=== PATIENT | female | born 1965 | race Caucasian/White ===

== ENCOUNTER → 2019-04-01 | Outpatient (CLI) | payer OTHER, SELFPAY ==
[~2019-04-01] MED LIST: E-Z-GAS II EFFERVESCENT PACKET (SODIUM BICARB./CITRIC ACID/SIMETHICONE) As Ordered ONE; E-Z-HD 98% w/w 340GM SUSP BTL As Ordered ONE; E-Z-PAQUE 96% w/w SUSP 176GM BTL As Ordered ONE
--- NOTE | 2019-04-01 17:27 | REP ---
Esophagram The procedure was performed under the direct supervision of Dr. Peraza. The images were reviewed with Dr. Peraza. A single view PA chest x-ray is submitted as a shoe worker film. The superior mediastinal structures are midline. The heart size is within normal limits. The lungs are clear. Liquid barium and gas producing granules were given in the erect position as well as liquid barium in the prone oblique positions in order to perform a double contrast esophagram examination. The oral and pharyngeal stages of deglutition are unremarkable. Esophageal transport is prompt and efficient and there is no esophagitis, stricture, mucosal ring or hiatal hernia. Gastroesophageal reflux is not demonstrated on this examination. Note is made of degenerative disc disease in the cervical spine. Impression: Essentially unremarkable double contrast esophagram examination. 0.5 minutes of fluoro time was utilized for this procedure. Electronically Signed by BELA Espinoza 04/01/2019 03:24 P Electronically Signed by Fermín Peraza MD 04/01/2019 05:18 P
== END ==
LOC: M RAD 07:47
PROVIDERS: ATTEND Surgery
DX: R13.10 Dysphagia, unspecified (principal); M50.30 Other cervical disc degeneration, unspecified cervical region

== ENCOUNTER → 2019-04-30 | Outpatient (CLI) | payer OTHER ==
--- NOTE | 2019-04-30 10:40 | REP ---
NUCLEAR GASTRIC EMPTYING SCAN: Following the oral administration of 1.1 mCi of technetium-99m sulfur colloid in two scrambled eggs and 6 ounces of water multiple images of the upper abdomen are performed in the anterior and posterior projections. Gastric activity is measured. At the end of 90 minutes 47% of the ingested activity has emptied from the stomach. T1/2 is calculated to be 98 minutes. A normal T1/2 is 90 minutes or less. IMPRESSION: Slightly elevated T1/2 at 98 minutes, normal is 90 minutes or less. Gastric emptying appears to be at the upper limits of normal to slightly delayed. Electronically Signed by Chai Herndon MD 04/30/2019 03:50 P
== END ==
LOC: M RAD 07:36
PROVIDERS: ATTEND Internal Medicine Gastroenterology
DX: K21.9 Gastro-esophageal reflux disease without esophagitis (principal); K31.84 Gastroparesis
CPT/HCPCS: 78264; A9541

== ENCOUNTER 2019-07-16 08:29 | Day surgery (SDC) | payer OTHER ==
[~2019-07-16] VITALS: Ht 154.9 cm; Wt 61.7 kg
[~2019-07-16 08:29] MED LIST changes: -E-Z-GAS II EFFERVESCENT PACKET (SODIUM BICARB./CITRIC ACID/SIMETHICONE) As Ordered ONE; -E-Z-HD 98% w/w 340GM SUSP BTL As Ordered ONE; -E-Z-PAQUE 96% w/w SUSP 176GM BTL As Ordered ONE; +FAMO40TA3 PO; +GABA600T4 PO; +NS 1,000 ML IV ONE; +OMEP-221 PO; +PHEN37.52 PO
[2019-07-16] MEDS ORDERED: LIDOCAINE 2% INJ 100 MG/5 ML SDV (FOR ANES.) As Ordered ONE (09:39)
[2019-07-16] MEDS ORDERED: fentaNYL 100 MCG/2 ML INJECTION (J3010) As Ordered ONE (09:39)
[2019-07-16] MEDS ORDERED: propofoL 500 MG/50 ML VIAL As Ordered ONE (09:39)
--- NOTE | 2019-07-16 09:48 | ROOR ---
Patient Name: Kelsey Miles Procedure Date: 07/16/2019 9:28 AM Date of : 1965 Age: 54 Room: [facility] Gender: Female Note Status: Finalized Procedure: Upper GI endoscopy Indications: Heartburn, Esophageal reflux symptoms that recur despite appropriate therapy. Gastroparesis Providers: Serg LUCIO MD Referring MD: REZA AMIN DO Requesting Provider: Medicines: Monitored Anesthesia Care Complications: No immediate complications. Procedure: Pre-Anesthesia Assessment: - The heart rate, respiratory rate, oxygen saturations, blood pressure, adequacy of pulmonary ventilation, and response to care were monitored throughout the procedure. The Endoscope was introduced through the mouth, and advanced to the second part of duodenum. The upper GI endoscopy was accomplished without difficulty. The patient tolerated the procedure well. Findings: The examined esophagus was normal. This was biopsied with a cold forceps for evaluation of eosinophilic esophagitis. The Z-line was regular and was found 36 cm from the incisors. Multiple 5 mm sessile fundic gland polyps were found in the gastric fundus and in the gastric body. This was biopsied with a cold forceps for histology. The exam of the stomach was otherwise normal. The examined duodenum was normal. Impression: - Normal esophagus. Biopsied mid/distal/proximal esophagus. - Z-line regular, 36 cm from the incisors. - Multiple fundic gland polyps. Biopsied. - Otherwise normal stomach. Biopsied. - Normal examined duodenum. Recommendation: - Gastroparesis diet: - Eat smaller, more frequent meals throughout the day. - Low fat diet. - Liquid/soft foods are tolerated better than solid foods. - Low fiber/well cooked vegetables are tolerated better than high fiber/fibrous foods/raw vegetables. - Avoid medications that inhibit gastric/intestinal motility such as narcotic medications. - Avoid late night eating. - Observe patient's clinical course. Serg Lucio MD Serg LUCIO MD 07/16/2019 9:48:38 AM Electronically signed by Serg LUCIO MD Number of Addenda: 0 Note Initiated On: 07/16/2019 9:28 AM Estimated Blood Loss: Estimated blood loss: none.
[2019-07-16 10:14] VITALS: BP 146/95
== END 2019-07-16 10:14 | disposition home or self-care (01) ==
LOC: M OPP 08:29
PROVIDERS: ATTEND Internal Medicine Gastroenterology
DX: K31.7 Polyp of stomach and duodenum (principal); R12 Heartburn; K21.9 Gastro-esophageal reflux disease without esophagitis; E11.9 Type 2 diabetes mellitus without complications; Z79.899 Other long term (current) drug therapy; Z88.5 Allergy status to narcotic agent; Z88.8 Allergy status to other drugs, medicaments and biological substances; Z80.0 Family history of malignant neoplasm of digestive organs
CPT/HCPCS: 43239; 88305; J3010

== ENCOUNTER 2024-03-05 07:53 | Day surgery (SDC) | payer OTHER ==
[~2024-03-05] VITALS: Ht 157.5 cm; Wt 62.9 kg
[~2024-03-05 07:53] MED LIST changes: +ACETAMINOPHEN 1000MG 100ML IV BAG As Ordered ONE; +CELE0.09 PO; +GABA-1490 PO; -GABA600T4 PO; +GNPTAB36 PO; +LIDOCAINE 2% 100MG/5ML SDV (FOR ANES.) As Ordered ONE; +METO1TAB7 PO; +MIDAZOLAM INJ 2MG/2ML VIAL As Ordered ONE; +NEXI40CA PO; -NS 1,000 ML IV ONE; -OMEP-221 PO; +OMEP40CA5 PO; +ONDANSETRON 4MG 2ML VIAL As Ordered ONE; -PHEN37.52 PO; +PHEN37.58 PO; +ROSU5TAB40 PO; +TRUL0.5I SC; +dexmedeTOMIDine (4MCG/ML)200MCG/50ML BTL (PRECEDEX) As Ordered ONE; +fentaNYL 100 MCG/2 ML INJECTION As Ordered ONE; +propofoL 200 MG/20 ML VIAL As Ordered ONE
[2024-03-05] MEDS ORDERED: LR 1,000 ML IV SCH (09:10)
[2024-03-05] MEDS: LIDOCAINE 2% MDV 20ML VIAL As Ordered ONE (09:49)
[2024-03-05] MEDS: ceFAZolin SOD 2 GM in IV 1 EA IV ONE (09:50)
[2024-03-05] MEDS: GENTAMICIN SULF 80MG/2ML VIAL As Ordered ONE (10:32)
[2024-03-05 12:00] VITALS: BP 124/84; TEMP 97.3; O2SAT 97
== END 2024-03-05 13:36 | disposition home or self-care (01) ==
LOC: M SDC 07:53
PROVIDERS: ATTEND Podiatrist
DX: G57.62 Lesion of plantar nerve, left lower limb (principal); E11.9 Type 2 diabetes mellitus without complications; I10 Essential (primary) hypertension; E78.00 Pure hypercholesterolemia, unspecified; K58.9 Irritable bowel syndrome, unspecified; K21.9 Gastro-esophageal reflux disease without esophagitis; Z79.899 Other long term (current) drug therapy; Z79.85 Long-term (current) use of injectable non-insulin antidiabetic drugs; Z90.710 Acquired absence of both cervix and uterus; Z90.89 Acquired absence of other organs; Z88.5 Allergy status to narcotic agent; Z88.8 Allergy status to other drugs, medicaments and biological substances; Z91.040 Latex allergy status
CPT/HCPCS: 28080; 88304; 97116; 97161; J0131; J0665; J0690; J1100; J1580; J2250; J2405; J3010